=== PATIENT | male | born 1955 | race Caucasian/White ===

== ENCOUNTER → 2018-03-11 | Outpatient (CLI) | payer BC ==
[~2018-03-11] VITALS: Ht 172.7 cm; Wt 127.5 kg
[~2018-03-11] MED LIST: BUPRENORPHINE HC8 MG SL; CATAPRES 0.1MG0.1 MG PO; COZAAR100 MG PO; EFFEXOR-XR150 MG PO; KLONOPIN2 MG PO; NORVASC 10MG10 MG PO; REMERON30 MG PO; ZOLOFT 25MG25 MG PO
[2018-03-11 12:27] VITALS: BP 156/83; PULSE 50
[2018-03-11 13:25] VITALS: BP 136/77; PULSE 48
== END ==
LOC: COL.RAD 11:40
DX: M99.71 Connective tissue and disc stenosis of intervertebral foramina of cervical region (principal); M48.02 Spinal stenosis, cervical region; M50.31 Other cervical disc degeneration, high cervical region
CPT/HCPCS: J1100

== ENCOUNTER 2018-04-02 09:09 | Outpatient (CLI) | payer BC ==
[~2018-04-02] VITALS: Ht 172.8 cm; Wt 129.5 kg
[2018-04-02 12:25] VITALS: BP 137/92; PULSE 70
[2018-04-02 13:11] VITALS: BP 137/92; PULSE 90
== END 2018-04-02 13:18 | disposition home or self-care (01) ==
LOC: COL.RAD 09:09
DX: M48.02 Spinal stenosis, cervical region (principal)
CPT/HCPCS: J1100